=== PATIENT | male | born 1955 | race African-American/Black ===

== ENCOUNTER 2019-09-09 07:23 | Day surgery (SDC) | payer MEDICARE ==
--- NOTE | 2019-09-06 09:39 | Pre-Procedure Note/Attestation ---
Pre-Procedure Note/Attestation Complete Prior to Procedure Planned Procedure: left Procedure Narrative: Cataract extraction with IOL implant left eye Indications for Procedure Pre-Operative Diagnosis: Nuclear sclerotic cataract left eye Attestation I attest that I discussed the nature of the procedure; its benefits; risks and complications; and alternatives (and the risks and benefits of such alternatives ), prior to the procedure, with the patient (or the patient's legal bottling equipment sales representative). I attest that, if there was a reasonable possibility of needing a blood transfusion, the patient (or the patient's legal bottling equipment sales representative) was given the [facility] standardized written summary, pursuant to the Rajiv [place] Blood Safety Act ([place] Health and Safety Code # 1645, as amended). I attest that I re-evaluated the patient just prior to the surgery and that there has been no change in the patient's H&P, except as documented below: Otto Peralta MD Sep 06, 2019 09:39
--- NOTE | 2019-09-06 09:45 | Opthalmology H&P ---
Ophthalmology H&P H&P Chief Complaint: decreased vision in left eye HPI Vision Affects Ability to: read, manage personal affairs Past Ocular History: retinal problems - Peripheral retinal degeneration OU, HPI Narrative Blurry vision Exam Visual Acuity: OD 20/60 OS 20/80 Tension: OD 12 OS 13 Eye Exam: normal OU: external exam, palpebral fissure-width, marginal reflex distance, levator function, corneas, anterior chambers; findings: lens - NS Cataracts OU,CC-PSC Cataract OD,, fundus exam - PRD OU, Assessment/Plan Treatment Plan: cataract extraction w/ lens implant Goals of Treatment: improvement of vision, enhance quality of life Attestation Attestation The risks and benefits of the surgery as well as alternative procedures were explained to the patient in detail. Otto Peralta MD Sep 06, 2019 09:45
[~2019-09-09] VITALS: Ht 175.3 cm; Wt 51.3 kg
[2019-09-09] VITALS (10 sets, daily range): BP systolic 92–149; BP diastolic 53–76
[~2019-09-09 07:23] MED LIST: Akten 3.5% 1ml Btl LEFT EYE ONE; Proparacaine 0.5% Opth Soln 15ml LEFT EYE ONE; Tetracaine 0.5% Opth 4ml Soln LEFT EYE ONE
[2019-09-09] MEDS ORDERED: Midazolam 2mg/2ml Inj ONE (08:22)
[2019-09-09] MEDS: Cyclopentolate 1% Opth Sol 2ml LEFT EYE SCH ×3 (08:56→09:20)
[2019-09-09] MEDS: Phenylephrine 10% Opth Soln 5ml LEFT EYE SCH ×3 (08:57→09:20)
[2019-09-09] MEDS: Tobramycin Op Soln 0.3% 5ml LEFT EYE SCH ×3 (08:59→09:20)
[2019-09-09] MEDS ORDERED: LR 1000ml 1,000 ML IVLG SCH (09:08)
[2019-09-09] MEDS: Tropicamide 1% Opth 15ml Soln LEFT EYE SCH ×3 (09:11→09:22)
[2019-09-09] MEDS: Diclofenac Sod 0.1% Op Soln LEFT EYE SCH ×3 (09:12→09:22)
[2019-09-09] MEDS ORDERED: Hydromorphone 0.5mg/0.5ml inj IVP PRN (09:15)
[2019-09-09] MEDS ORDERED: HYDROcodone/Acetamin 5/325 tab ORAL PRN (09:15)
[2019-09-09] MEDS ORDERED: Metoclopramide 10mg/2ml Inj IVP PRN (09:15)
[2019-09-09] MEDS ORDERED: Labetalol 5mg/ml 20ml vial IV PRN (09:15)
[2019-09-09] MEDS ORDERED: Atropine Sulfate 0.4mg/ml inj IVP PRN (09:15)
[2019-09-09] MEDS ORDERED: Midazolam 2mg/2ml Inj IVP PRN (09:15)
[2019-09-09] MEDS ORDERED: HYDROcodone/Acetamin 7.5/325 tab ORAL PRN (09:15)
[2019-09-09] MEDS ORDERED: DiphenhydrAMINE 50mg/ml Inj IVP PRN (09:15)
[2019-09-09] MEDS ORDERED: oxyCODONE HCL/Acetaminophen 5/325mg ORAL PRN (09:15)
[2019-09-09] MEDS ORDERED: Ketorolac 30mg Inj IV PRN ×2 (09:15)
[2019-09-09] MEDS ORDERED: fentaNYL 100 mcg/2 mL IV PRN (09:15)
[2019-09-09] MEDS ORDERED: LORazepam Inj 2mg/ml 1ml IV PRN (09:15)
[2019-09-09] MEDS ORDERED: Meperidine 50mg/ml Inj(FOR RIGORS ONLY) IVP PRN (09:15)
[2019-09-09 09:42] LABS: ANION GAP 8 mmol/L (5-15); BLOOD UREA NITROGEN 12 mg/dL (7-18); CALCIUM 9.8 MG/DL (8.5-10.1); CARBON DIOXIDE 32 MMOL/L (21-32); CHLORIDE 90 MMOL/L (98-107); CREATININE 0.8 MG/DL (0.55-1.30); POTASSIUM 4.2 MMOL/L (3.5-5.1); SODIUM 130 MMOL/L (136-145)
[2019-09-09 09:49] LABS: HEMATOCRIT 41.9 % (42.0-52.0); HEMOGLOBIN 15.1 G/DL (14.2-18.0); MEAN CORPUSCULAR VOLUME 96 FL (80-99); PLATELET COUNT 168 K/UL (150-450); RED BLOOD COUNT 4.38 M/UL (4.70-6.10); WHITE BLOOD COUNT 3.1 K/UL (4.8-10.8)
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
--- NOTE | 2019-09-09 09:59 | Immediate Post-Op Evaluation ---
Immediate Post-Op Evalulation Immediate Post-Op Evalulation Procedure: Cat Ext IOL OS Date of Evaluation: Sep 09, 2019 Time of Evaluation: 12:15 IV Fluids: 1000 LR Blood Products: 0 Estimated Blood Loss: 1 Urinary Output: 0 Blood Pressure Systolic: 102 Blood Pressure Diastolic: 61 Pulse Rate: 58 Respiratory Rate: 16 O2 Sat by Pulse Oximetry: 100 Temperature (Fahrenheit): 97.2 Pain Score (1-10): 1 Nausea: No Vomiting: No Complications 0 Patient Status: awake, reacts, patent, none Hydration Status: adequate Zhen Nguyen MD Sep 09, 2019 09:59
--- NOTE | 2019-09-09 10:00 | 48 Hour Post Anesthesia Eval ---
Post Anesthesia Evaluation Procedure: Cat Ext IOL OS Date of Evaluation: Sep 09, 2019 Time of Evaluation: 14:23 Blood Pressure Systolic: 152 0: 98 Pulse Rate: 65 Respiratory Rate: 18 Temperature (Fahrenheit): 98.2 O2 Sat by Pulse Oximetry: 98 Airway: patent Nausea: No Vomiting: No Pain Intensity: 1 Hydration Status: adequate Cardiopulmonary Status: Stable Mental Status/LOC: patient returned to baseline Follow-up Care/Observations: 0 Post-Anesthesia Complications: 0 Zhen Nguyen MD Sep 09, 2019 10:00
[2019-09-09] MEDS ORDERED: Propofol 200mg/20ml IV ONE (11:00)
[2019-09-09] MEDS ORDERED: NS Irrig 1000ml ONE (11:00)
[2019-09-09] MEDS ORDERED: Dexamethasone 4mg/ml vial ONE ×2 (11:00→11:18)
[2019-09-09] MEDS ORDERED: LR 1000ml ONE (11:00)
[2019-09-09] MEDS ORDERED: Pred Forte 1% Opth Susp 1ml ONE (11:00)
[2019-09-09] MEDS ORDERED: Pilocarpine 1% Opth 15ml Soln ONE (11:00)
[2019-09-09] MEDS ORDERED: Phenylephrine 10mg/ml Vial ONE (11:00)
[2019-09-09] MEDS ORDERED: Polysporin Opth Oint 3.5gm ONE (11:00)
[2019-09-09] MEDS ORDERED: Sterile Water Irrig 1000ml IRRIG ONE (11:00)
[2019-09-09] MEDS ORDERED: Lidocaine 1% MPF 10mg/ml 5ml ONE (11:18)
[2019-09-09] MEDS ORDERED: Alfentanil 2ml Inj ONE (11:19)
[2019-09-09] MEDS ORDERED: Povidone-Iodine 5% opth solution ONE ×2 (11:24→12:06)
[2019-09-09] MEDS ORDERED: Sodium Hyaluronate 14 mg/ml 0.85ml ONE (12:06)
[2019-09-09] MEDS ORDERED: BSS 500ml btl ONE (12:06)
[2019-09-09] MEDS ORDERED: EPINEPHrine 1mg/1ml Amp ONE (12:06)
[2019-09-09] MEDS ORDERED: BSS 15ml BTL ONE (12:06)
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
[2019-09-09] MEDS ORDERED: HYDROCHLOROTHIA25 MG ORAL (15:08)
[2019-09-09] MEDS ORDERED: AMLODIPINE BESYL5 MG ORAL (15:08)
[2019-09-09] MEDS ORDERED: LISINOPRIL2.5 MG ORAL (15:09)
--- NOTE | 2019-09-10 12:06 | Brief Operative Note ---
Immediate Post Operative Note Operative Note Chief Complaint: Blurry vision Pre-op Diagnosis: Nuclear sclerotic cataract left eye Procedure: Cataract extraction with IOL implant left eye Post-op Diagnosis: Pseudo OS Findings: consistent w/pre-op dx studies Surgeon: Otto Peralta MD Anesthesiologist: Zhen Frankel MD Anesthesia: general Specimen: none Complications: none Condition: stable Fluids: LR Estimated Blood Loss: none Drains: none Implant(s) used?: Yes - IOL OS Otto Peralta MD Sep 10, 2019 12:06
--- NOTE | 2019-09-10 12:14 | Operative Note - PDOC ---
Operative Note Operative Note Date of Operation/Procedure: Sep 09, 2019 Chief Complaint: Blurry vision Pre-op Diagnosis: Nuclear sclerotic cataract left eye Procedure: Cataract extraction with IOL implant left eye Post-op Diagnosis: Pseudo OS Operative Findings: consistent w/pre-op dx studies Surgeon: Otto Peralta MD Anesthesiologist: Zhen Frankel MD Anesthesia: general Specimen: none Complications: none Condition: stable Fluids: LR Estimated Blood Loss: none Drains: none Implant(s) used?: Yes - IOL OS Indications for Procedure Nuclear sclerotic cataract left eye Description of Procedure This patient has been complaining visually significant cataract in the left eye with the best corrected visual acuity of 20/80 under moderate glare conditions worse. The patient complains of difficulties with glare in performing activities of daily living and wants to manage personal affairs with comfort and accuracy and see well enough to move with safety at home and outdoors. The risks, benefits and alternatives of the procedure were discussed with the patient in the office prior to scheduling surgery. All questions from the patient were answered after the surgical procedure was explained in detail. The risks of the procedure as explained to the patient include, but are not limited to, pain, infection, bleeding, loss of vision, retinal detachment, need for further surgery, loss of lens nucleus, double vision, etc. Alternative procedures were discussed which include, to do nothing or seek a second opinion. Informed consent for this procedure was obtained from the patient. The patient was referred to a primary care physician for a cardiopulmonary clearance prior to surgery, after proper evaluation was done patient was properly scheduled for outpatient surgery. The patient was brought to the operating room where the anesthesiologist established I.V. lines and cardiac monitoring leads. Mild intravenous sedation was administered. The patient was then prepared with a 5% solution of povidone -iodine to the conjunctival fornix and lashes, and a 5% solution of povidone- iodine to the lids and periorbital skin. The patient was then draped in the usual sterile fashion. A lid speculum was then placed in the operative eye. A keratome blade was then used to create a biplanar incision into the anterior chamber. Viscoelastics was then instilled into the anterior chamber. A 3-mm single pass clear corneal incision was made just anterior to the vascular arcade of the temporal limbus using a keratome. Anterior capsulorrhexis was created. The nucleus was hydrodissected and hydrodelineated, and was freely movable in the capsular bag. The nucleus was then phacoemulsified. Following the deep groove formation, the lens was split bimanually and epicortex removed under vacuum burst-mode phacoemulsification. Peripheral cortex was removed with the irrigation and aspiration handpiece. The capsular bag was expanded with viscoelastic. The intraocular lens was then inspected for right power and size and thought to be satisfactory. The implant was inspected under the microscope and found to be free of defects. The implant was inserted into the cartridge system under viscoelastic and placed in the capsular bag. The trailing haptic was positioned with the cartridge system. Viscoelastics was removed from the anterior chamber using the irrigation and aspiration unit. The corneal wound was then tested for leaks and none were found. The lid speculum were then removed. Sponge and needle counts were correct. An eye patch and shield were placed over the operative eye. The patient was taken to the recovery room in stable condition. There were no complications. The patient tolerated the procedure well. The patient was then transferred to the ambulatory surgery unit in stable and satisfactory condition , was given detailed written instructions and asked to follow up in the office the next day. Otto Peralta MD Sep 10, 2019 12:14
--- NOTE | 2019-09-13 15:55 | Cardiology Report ---
APPROVED REPORT EKG Measurement Heart [id number] Sinus rhythm with occasional premature ventricular complexes Septal infarct, age undetermined Abnormal ECG
== END 2019-09-09 14:15 | disposition home or self-care (01) ==
LOC: SUR 07:23
DX: H25.12 Age-related nuclear cataract, left eye (principal); I10 Essential (primary) hypertension; J44.9 Chronic obstructive pulmonary disease, unspecified; Z86.19 Personal history of other infectious and parasitic diseases; N40.0 Benign prostatic hyperplasia without lower urinary tract symptoms; Z79.899 Other long term (current) drug therapy; Z87.891 Personal history of nicotine dependence; I25.2 Old myocardial infarction
CPT/HCPCS: 36415; 66984; 80048; 85007; 85025; 93005; J0171; J1100; J2250; J2370; J2405; J2704; J3370; J3490; J7120; V2632; 94003; 94150

== ENCOUNTER 2019-11-25 05:50 | Day surgery (SDC) | payer MEDICARE ==
--- NOTE | 2019-11-20 16:05 | Opthalmology H&P ---
Ophthalmology H&P H&P Chief Complaint: decreased vision in right eye HPI Vision Affects Ability to: read, manage personal affairs HPI Narrative Blurry vision Exam Visual Acuity: OD 20/50 OS 20/30 Tension: OD 13 OS 14 Eye Exam: normal OU: external exam, palpebral fissure-width, marginal reflex distance, levator function, corneas, anterior chambers, fundus exam; findings: lens - NS cataracts OU Assessment/Plan Treatment Plan: cataract extraction w/ lens implant Goals of Treatment: improvement of vision, enhance quality of life Attestation Attestation The risks and benefits of the surgery as well as alternative procedures were explained to the patient in detail. Otto Peralta MD Nov 20, 2019 16:05
--- NOTE | 2019-11-20 16:10 | Pre-Procedure Note/Attestation ---
Pre-Procedure Note/Attestation Complete Prior to Procedure Planned Procedure: right Procedure Narrative: Cataract extraction with IOL implant right eye Indications for Procedure Pre-Operative Diagnosis: Cortical/ posterior subcapsular cataract right eye Attestation I attest that I discussed the nature of the procedure; its benefits; risks and complications; and alternatives (and the risks and benefits of such alternatives ), prior to the procedure, with the patient (or the patient's legal inside account representative). I attest that, if there was a reasonable possibility of needing a blood transfusion, the patient (or the patient's legal inside account representative) was given the [facility] standardized written summary, pursuant to the Rajiv [place] Blood Safety Act ([place] Health and Safety Code # 1645, as amended). I attest that I re-evaluated the patient just prior to the surgery and that there has been no change in the patient's H&P, except as documented below: Otto Peralta MD Nov 20, 2019 16:10
[2019-11-25] VITALS (8 sets, daily range): BP systolic 119–144; BP diastolic 77–88
[~2019-11-25] VITALS: Ht 175.3 cm; Wt 52.2 kg
[~2019-11-25 05:50] MED LIST changes: +AMLODIPINE BESYL5 MG ORAL; -Akten 3.5% 1ml Btl LEFT EYE ONE; +HYDROCHLOROTHIA25 MG ORAL; +LISINOPRIL2.5 MG ORAL; -Proparacaine 0.5% Opth Soln 15ml LEFT EYE ONE; -Tetracaine 0.5% Opth 4ml Soln LEFT EYE ONE
[2019-11-25] MEDS ORDERED: Tetracaine 0.5% Opth 4ml Soln RIGHT EYE ONE (07:00)
[2019-11-25] MEDS ORDERED: Proparacaine 0.5% Opth Soln 15ml RIGHT EYE ONE (07:00)
[2019-11-25] MEDS ORDERED: Akten 3.5% 1ml Btl RIGHT EYE ONE (07:00)
[2019-11-25] MEDS: Tropicamide 1% Opth 15ml Soln RIGHT EYE SCH ×3 (08:02→08:42)
[2019-11-25] MEDS: Cyclopentolate 1% Opth Sol 2ml RIGHT EYE SCH ×3 (08:02→08:42)
[2019-11-25] MEDS: Phenylephrine 10% Opth Soln 5ml RIGHT EYE SCH ×3 (08:02→08:42)
[2019-11-25] MEDS: Tobramycin Op Soln 0.3% 5ml RIGHT EYE SCH ×3 (08:02→08:42)
[2019-11-25] MEDS: Diclofenac Sod 0.1% Op Soln RIGHT EYE SCH ×3 (08:02→08:43)
[2019-11-25 08:21] LABS: BASOPHILS % (AUTO) 4.5 % (0.0-2.0); EOSINOPHILS % (AUTO) 0.7 % (0.0-3.0); HEMATOCRIT 43.1 % (42.0-52.0); HEMOGLOBIN 16.5 G/DL (14.2-18.0); LYMPHOCYTES % (AUTO) 22.4 % (20.0-45.0); MEAN CORPUSCULAR VOLUME 96 FL (80-99); MONOCYTES % (AUTO) 16.1 % (1.0-10.0); NEUTROPHILS % (AUTO) 56.3 % (45.0-75.0); PLATELET COUNT 153 K/UL (150-450); RED CELL DISTRIBUTION WIDTH 11.6 % (11.6-14.8); WHITE BLOOD COUNT 3.5 K/UL (4.8-10.8)
[2019-11-25 08:37] LABS: ANION GAP 9 mmol/L (5-15); BLOOD UREA NITROGEN 11 mg/dL (7-18); CALCIUM 9.8 MG/DL (8.5-10.1); CARBON DIOXIDE 31 MMOL/L (21-32); CHLORIDE 94 MMOL/L (98-107); CREATININE 0.7 MG/DL (0.55-1.30); POTASSIUM 3.4 MMOL/L (3.5-5.1); SODIUM 134 MMOL/L (136-145)
[2019-11-25] MEDS ORDERED: Pilocarpine 1% Opth 15ml Soln ONE (09:30)
[2019-11-25] MEDS ORDERED: Sterile Water Irrig 1000ml IRRIG ONE (09:30)
[2019-11-25] MEDS ORDERED: Polysporin Oint 15gm TOPIC ONE (09:30)
[2019-11-25] MEDS ORDERED: prednisoLONE acetate 1% Opth Susp 1ml ONE (09:30)
[2019-11-25] MEDS ORDERED: LR 1000ml ONE (09:30)
[2019-11-25] MEDS ORDERED: NS Irrig 1000ml ONE (09:30)
[2019-11-25] MEDS ORDERED: Propofol 200mg/20ml IV ONE (09:30)
[2019-11-25] MEDS ORDERED: Dexamethasone 4mg/ml vial ONE (09:30)
[2019-11-25] MEDS ORDERED: LR 1000ml 1,000 ML IVLG SCH ×2 (09:35)
--- NOTE | 2019-11-25 09:42 | Anethesia Preoperative Eval ---
Anesthesia Pre-op PMH/ROS General Date of Evaluation: Nov 25, 2019 Time of Evaluation: 09:32 Anesthesiologist: Patrick ASA Score: ASA 3 Mallampati Score Class I : Soft palate, uvula, fauces, pillars visible Class II: Soft palate, uvula, fauces visible Class III: Soft palate, base of uvula visible Class IV: Only hard plate visible Mallampati Classification: Class II Surgeon: Kathryn Diagnosis: Cataract OD Surgical Procedure: CAT EXT IOL OD Anesthesia History: none Family History: no anesthesia problems Allergies: Coded Allergies: LISINOPRIL (Verified Allergy, Intermediate, swelling; throat closes up, ) Medications: see eMAR Patient NPO?: Yes Past Medical History Cardiovascular: Reports: HTN Pulmonary: Reports: COPD HEENT: Reports: cataract (L), cataract (R) PSxH Narrative: CAT EXT IOL OS Anesthesia Pre-op Phys. Exam Physician Exam Last Vital Signs Date Time Temp Pulse Resp B/P (MAP) Pulse Ox O2 Delivery O2 Flow Rate FiO2 11/25/19 08:38 98.1 70 18 144/77 100 Room Air Constitutional: NAD Neurologic: CN 2-12 intact Cardiovascular: RRR Respiratory: CTA Gastrointestinal: S/NT/ND Airway Exam Mallampati Score: Class II MO: full ROM: full Teeth: missing Dentures: upper, lower Anesthesia Pre-op A/P Labs Hematology Test 11/25/19 08:10 White Blood Count 3.5 K/UL (4.8-10.8) L Red Blood Count 4.50 M/UL (4.70-6.10) L Hemoglobin 16.5 G/DL (14.2-18.0) Hematocrit 43.1 % (42.0-52.0) Mean Corpuscular Volume 96 FL (80-99) Mean Corpuscular Hemoglobin 36.8 PG (27.0-31.0) H Mean Corpuscular Hemoglobin Concent 38.4 G/DL (32.0-36.0) H Red Cell Distribution Width 11.6 % (11.6-14.8) Platelet Count 153 K/UL (150-450) Mean Platelet Volume 6.2 FL (6.5-10.1) L Neutrophils (%) (Auto) 56.3 % (45.0-75.0) Lymphocytes (%) (Auto) 22.4 % (20.0-45.0) Monocytes (%) (Auto) 16.1 % (1.0-10.0) H Eosinophils (%) (Auto) 0.7 % (0.0-3.0) Basophils (%) (Auto) 4.5 % (0.0-2.0) H Coagulation Test 11/25/19 08:10 Prothrombin Time 10.8 SEC (9.30-11.50) Prothromb Time International Ratio 1.0 (0.9-1.1) Activated Partial Thromboplast Time 28 SEC (23-33) Chemistry Test 11/25/19 08:10 Sodium Level 134 MMOL/L (136-145) L Potassium Level 3.4 MMOL/L (3.5-5.1) L Chloride Level 94 MMOL/L (98-107) L Carbon Dioxide Level 31 MMOL/L (21-32) Anion Gap 9 mmol/L (5-15) Blood Urea Nitrogen 11 mg/dL (7-18) Creatinine 0.7 MG/DL (0.55-1.30) Estimat Glomerular Filtration Rate > 60 mL/min (>60) Glucose Level 116 MG/DL (74-106) H Calcium Level 9.8 MG/DL (8.5-10.1) Risk Assessment & Plan Assessment: ASA 3 Plan: TIVA Status Change Before Surgery: Zhen Gandara MD Nov 25, 2019 09:42
[2019-11-25] MEDS ORDERED: Lidocaine 1% MPF 10mg/ml 5ml ONE (09:43)
[2019-11-25] MEDS ORDERED: Hydromorphone 0.5mg/0.5ml inj IVP PRN ×2 (09:45)
[2019-11-25] MEDS ORDERED: Midazolam 2mg/2ml Inj IVP PRN ×2 (09:45)
[2019-11-25] MEDS ORDERED: Labetalol 5mg/ml 20ml vial IV PRN ×2 (09:45)
[2019-11-25] MEDS ORDERED: fentaNYL 100 mcg/2 mL IV PRN ×2 (09:45)
[2019-11-25] MEDS ORDERED: HYDROcodone/Acetamin 7.5/325 tab ORAL PRN ×2 (09:45)
[2019-11-25] MEDS ORDERED: Ketorolac 30mg Inj IV PRN ×4 (09:45)
[2019-11-25] MEDS ORDERED: HYDROcodone/Acetamin 5/325 tab ORAL PRN ×2 (09:45)
[2019-11-25] MEDS ORDERED: DiphenhydrAMINE 50mg/ml Inj IVP PRN ×2 (09:45)
[2019-11-25] MEDS ORDERED: Meperidine 25mg/0.5ml Inj (FOR RIGORS ONLY) IV PRN ×2 (09:45)
[2019-11-25] MEDS ORDERED: Metoclopramide 10mg/2ml Inj IVP PRN ×2 (09:45)
[2019-11-25] MEDS ORDERED: oxyCODONE HCL/Acetaminophen 5/325mg ORAL PRN ×2 (09:45)
[2019-11-25] MEDS ORDERED: Atropine Sulfate 0.4mg/ml inj IVP PRN ×2 (09:45)
[2019-11-25] MEDS ORDERED: LORazepam Inj 2mg/ml 1ml IV PRN ×2 (09:45)
--- NOTE | 2019-11-25 09:51 | Immediate Post-Op Evaluation ---
Immediate Post-Op Evalulation Immediate Post-Op Evalulation Procedure: CAT EXT IOL OD Date of Evaluation: Nov 25, 2019 Time of Evaluation: 10:32 IV Fluids: 800 LR Blood Products: 0 Estimated Blood Loss: 1 Urinary Output: 0 Blood Pressure Systolic: 122 Blood Pressure Diastolic: 78 Pulse Rate: 76 Respiratory Rate: 16 O2 Sat by Pulse Oximetry: 99 Temperature (Fahrenheit): 97.7 Pain Score (1-10): 1 Nausea: No Vomiting: No Complications 0 Patient Status: awake, reacts, patent, none Hydration Status: adequate Zhen Nguyen MD Nov 25, 2019 09:51
--- NOTE | 2019-11-25 09:52 | 48 Hour Post Anesthesia Eval ---
Post Anesthesia Evaluation Procedure: CAT EXT IOL OD Date of Evaluation: Nov 25, 2019 Time of Evaluation: 12:43 Blood Pressure Systolic: 134 0: 78 Pulse Rate: 69 Respiratory Rate: 18 Temperature (Fahrenheit): 98 O2 Sat by Pulse Oximetry: 98 Airway: patent Nausea: No Vomiting: No Pain Intensity: 1 Hydration Status: adequate Cardiopulmonary Status: Stable Mental Status/LOC: patient returned to baseline Follow-up Care/Observations: 0 Post-Anesthesia Complications: 0 Follow-up care needed: ready to discharge Zhen Nguyen MD Nov 25, 2019 09:52
[2019-11-25] MEDS ORDERED: EPINEPHrine 1mg/1ml Amp ONE (13:32)
[2019-11-25] MEDS ORDERED: Sodium Hyaluronate 10 mg/ml 0.85ml ONE (13:33)
[2019-11-25] MEDS ORDERED: Povidone-Iodine 5% opth solution ONE (13:33)
[2019-11-25] MEDS ORDERED: BSS 500ml btl ONE (13:33)
[2019-11-25] MEDS ORDERED: BSS 15ml BTL ONE (13:33)
--- NOTE | 2019-11-25 15:00 | Pre-op HX & Phy Repo 2 SIG ---
DATE OF ADMISSION: 11/25/2019 PRESURGICAL INTERNAL MEDICINE HISTORY AND PHYSICAL DATE OF EVALUATION: November 25, 2019. REASON FOR EVALUATION: I was asked by Dr. Otto Peralta to see this 64-year-old male, who is going for elective surgery on the right eye. The patient has nuclear sclerotic cataract, right eye. Please see full History and Physical by microfilm operator, Dr. Otto Peralta. This is [facility] visit to [facility]. The patient had left eye cataract surgery in September 2019. Old chart was reviewed. PAST MEDICAL HISTORY/REVIEW OF SYSTEMS: Remarkable for hypertension, COPD, BPH. Denies history of stroke or seizures. Denies history of heart attack. Denies history of GI bleeding or heartburn. No hepatitis. Denies history of renal failure or dysuria. PAST SURGICAL HISTORY: Remarkable for left eye cataract in September 2019. FAMILY HISTORY: Mother from complication of stroke and father unknown. ALLERGIES: To lisinopril, develop edema of the face. PRESENT MEDICATIONS: Amlodipine, hydrochlorothiazide, and occasional inhalers. SOCIAL HISTORY: The patient was heavy smoker for more than 50 years and stopped two years ago. Alcohol, beer. Denies street drugs. PHYSICAL EXAMINATION: GENERAL: Alert, well-developed, well-nourished male in his 60s. No acute distress. VITAL SIGNS: Blood pressure 144/77, temperature 98.1, heart rate 70 regular, O2 saturation 100% on room air. SKIN: Dry, clear, and warm. No rashes. LYMPHATICS: Lymph nodes not enlarged. HEENT: Head, normocephalic and atraumatic. Ears, clear. Eyes, full description per Dr. Otto Peralta. Mouth, clear and moist without dentures upper and lower. NECK: Supple. No palpable mass. No lymph node enlargement. Carotids artery +2. Trachea midline. No jugular vein distention. CHEST: Mild kyphosis. LUNGS: Clear auscultation to percussion. No rales or rhonchi. HEART: Sinus rhythm. No ectopy. No murmur. No S3, S4. ABDOMEN: Soft. Benign liver, spleen, not enlarged. No rebound. EXTREMITIES: No peripheral edema. No varicose vein. No calf tenderness. No deformity. GENITOURINARY TRACT: Normal for gender. CVA nontender. History of benign prostatic hypertrophy from old chart. NERVOUS SYSTEM: No tremor. No nystagmus. DIAGNOSTIC AND LABORATORY DATA: ECG normal sinus rhythm, 67 per minute. Septal NV old and lateral NV old. The patient did not eat or drink since 7 p.m. yesterday. Lab work pending. IMPRESSION: 1. Nuclear sclerotic cataract, right eye. 2. Hypertension, controlled. 3. COPD, controlled. 4. BPH, . 5. Septal and lateral NV by EKG, clinically stable. PLAN: Cataract extraction, right eye with intraocular lens implant per Dr. Otto Peralta. CONCLUSION: The patient is a 64-year-old male with vital signs normal. He has history of COPD, which is controlled and hypertension controlled as well. The patient denies history of NV. Given normal EKG, his lateral and septal NV pattern, clinically stable. The patient did not eat or drink from 7 p.m. yesterday. The patient's condition optimized for surgery. Thank you very much, Dr. Peralta, for privilege to participate in presurgical care of this interesting patient. Avtar Stephens M.D. DR: LORIE JOB#: [id number] CC:
--- NOTE | 2019-11-27 08:11 | Brief Operative Note ---
Immediate Post Operative Note Operative Note Chief Complaint: Blurry vision Pre-op Diagnosis: Cortical/ posterior subcapsular cataract right eye Procedure: Cataract extraction with IOL implant right eye Post-op Diagnosis: Pseudo OD Findings: consistent w/pre-op dx studies Surgeon: Otto Peralta MD Anesthesiologist: Zhen Nguyen MD Anesthesia: MAC Specimen: none Complications: none Condition: stable Fluids: LR Estimated Blood Loss: none Drains: none Implant(s) used?: Yes - IOL-OD Otto Peralta MD Nov 27, 2019 08:11
--- NOTE | 2019-11-27 08:16 | Operative Note - PDOC ---
Operative Note Operative Note Date of Operation/Procedure: Nov 25, 2019 Chief Complaint: Blurry vision Pre-op Diagnosis: Cortical/ posterior subcapsular cataract right eye Procedure: Cataract extraction with IOL implant right eye Post-op Diagnosis: Pseudo OD Operative Findings: consistent w/pre-op dx studies Surgeon: Otto Peralta MD Anesthesiologist: Zhen Nguyen MD Anesthesia: MAC Specimen: none Complications: none Condition: stable Fluids: LR Estimated Blood Loss: none Drains: none Implant(s) used?: Yes - IOL-OD Indications for Procedure Cortical/ Posterior subcapsular cataract cataract right eye Description of Procedure This patient has been complaining visually significant cataract in the right eye with the best corrected visual acuity of 20/50 under moderate glare conditions worse. The patient complains of difficulties with glare in performing activities of daily living and wants to manage personal affairs with comfort and accuracy and see well enough to move with safety at home and outdoors. The risks, benefits and alternatives of the procedure were discussed with the patient in the office prior to scheduling surgery. All questions from the patient were answered after the surgical procedure was explained in detail. The risks of the procedure as explained to the patient include, but are not limited to, pain, infection, bleeding, loss of vision, retinal detachment, need for further surgery, loss of lens nucleus, double vision, etc. Alternative procedures were discussed which include, to do nothing or seek a second opinion. Informed consent for this procedure was obtained from the patient. The patient was referred to a primary care physician for a cardiopulmonary clearance prior to surgery, after proper evaluation was done patient was properly scheduled for outpatient surgery. The patient was brought to the operating room where the anesthesiologist established I.V. lines and cardiac monitoring leads. Mild intravenous sedation was administered. The patient was then prepared with a 5% solution of povidone -iodine to the conjunctival fornix and lashes, and a 5% solution of povidone- iodine to the lids and periorbital skin. The patient was then draped in the usual sterile fashion. A lid speculum was then placed in the operative eye. A keratome blade was then used to create a biplanar incision into the anterior chamber. Viscoelastics was then instilled into the anterior chamber. A capsulorrhexis was then fashioned with an utrata forceps A G 27 cannula was used to hydrodissect and hydro delineate the lens nucleus. Paracentesis incision was made at 3 o'clock with sharp blade. The phacoemulsification unit, after being properly adjusted and tested, was then used to emulsify the nucleus. Residual cortical material was aspirated with the irrigation and aspiration unit. Healon was then instilled into the anterior chamber. The corneal wound was then enlarged to the size of the optic with the shannan keratome blade. The intraocular lens was then inspected for right power and size and thought to be satisfactory. Then the lens was gently placed in the capsular bag. Positioning within the capsular bag was confirmed by direct visualization. Optic centration was accomplished with a Sinskey hook. Viscoelastics was removed from the anterior chamber using the irrigation and aspiration unit. The corneal wound was then tested for leaks and none were found. The lid speculum were then removed. Sponge and needle counts were correct. An eye patch and shield were placed over the operative eye. The patient was taken to the recovery room in stable condition. There were no complications. The patient tolerated the procedure well. The patient was then transferred to the ambulatory surgery unit in stable and satisfactory condition , was given detailed written instructions and asked to follow up in the office the next day. Otto Peralta MD Nov 27, 2019 08:16
== END 2019-11-25 11:50 | disposition home or self-care (01) ==
LOC: SUR 05:50
DX: H25.041 Posterior subcapsular polar age-related cataract, right eye (principal); H25.011 Cortical age-related cataract, right eye; I10 Essential (primary) hypertension; Z88.8 Allergy status to other drugs, medicaments and biological substances; B19.20 Unspecified viral hepatitis C without hepatic coma; J44.9 Chronic obstructive pulmonary disease, unspecified; Z79.899 Other long term (current) drug therapy; Z87.891 Personal history of nicotine dependence; N40.0 Benign prostatic hyperplasia without lower urinary tract symptoms; I25.2 Old myocardial infarction
CPT/HCPCS: 36415; 66984; 80048; 85025; 85610; 85730; 93005; J0171; J1100; J2250; J2704; J3370; J7120; V2632; 94003; 94150